=== PATIENT | male | born 1955 | race Caucasian/White ===

== ENCOUNTER → 2017-08-26 | Outpatient (CLI) | payer BC | LOC: RAD 16:28 | DX: R05 Cough (principal); R06.02 Shortness of breath ==

== ENCOUNTER → 2021-01-21 | Outpatient (REF) | LOC: LAB 15:38 | DX: Z00.00 Encounter for general adult medical examination without abnormal findings (principal); Z12.5 Encounter for screening for malignant neoplasm of prostate ==

== ENCOUNTER → 2021-09-12 | Outpatient (CLI) | payer MEDICARE | LOC: RAD 15:21 | DX: M51.36 Other intervertebral disc degeneration, lumbar region (principal) ==

== ENCOUNTER → 2021-12-16 | Outpatient (CLI) | payer MEDICARE ==
[~2021-12-16] VITALS: Ht 177.8 cm; Wt 90.0 kg
[~2021-12-16] MED LIST: ACETAMINOPHEN500 M5 PO; COZAAR100 MG PO; CRESTOR 10MG10 MG PO; MOBIC15 M1 PO; MOTRIN IB200 M2 PO
[2021-12-16 09:10] VITALS: BP 164/106
[2021-12-16 09:30] VITALS: BP 157/101
[2021-12-16 09:45] VITALS: BP 129/86
[2021-12-16 10:00] VITALS: BP 129/80
[2021-12-16 10:15] VITALS: BP 1311/82
== END ==
LOC: AMSURD 08:50
DX: U07.1 COVID-19 (principal)
CPT/HCPCS: M0222; Q0222

== ENCOUNTER → 2022-04-10 | Outpatient (CLI) | payer MEDICARE ==
[2022-04-10 17:11] LABS: BASO # 0.03 K/mm3 (0.02-0.10); EOS # 0.13 K/mm3 (0.04-0.40); EOS % 1.7 % (0.0-4.0); HEMATOCRIT 52.5 % (42.0-52.0); LYMPH# 1.55 K/mm3 (1.50-4.00); MEAN CELL VOLUME 92 fl (78-100); MEAN CORPUSCULAR HEMOGLOBIN 30 pg (27-31); MEAN CORPUSCULAR HGB CONC 32 g/dL (33-37); MEAN PLATELET VOLUME 11.3 fl (7.4-10.4); MONO # 0.61 K/mm3 (0.20-0.80); NEU # 5.43 K/mm3 (1.40-6.50); PLATELET COUNT 138 K/mm3 (130-400); RED BLOOD COUNT 5.74 M/mm3 (4.20-5.60); RED CELL DISTRIBUTION WIDTH 12.6 % (11.5-14.5); WHITE BLOOD COUNT 7.8 K/mm3 (4.8-10.8)
[2022-04-10 17:21] LABS: ALBUMIN 4.5 g/dL (3.4-4.8); POTASSIUM 3.8 mmol/L (3.5-5.1)
[2022-04-10 17:22] LABS: CALCIUM 9.6 mg/dL (8.3-10.5)
[2022-04-10 17:24] LABS: TOTAL PROTEIN 7.6 g/dL (6.2-8.1)
[2022-04-10 17:26] LABS: TOTAL BILIRUBIN 1.2 mg/dL (0.2-1.2)
[2022-04-10 17:31] LABS: MAGNESIUM 2.23 mg/dL (1.60-2.60)
== END ==
LOC: LAB 16:51
PROVIDERS: Internal Medicine
DX: Z12.5 Encounter for screening for malignant neoplasm of prostate (principal); Z00.00 Encounter for general adult medical examination without abnormal findings; I10 Essential (primary) hypertension; E78.2 Mixed hyperlipidemia

== ENCOUNTER → 2022-09-17 | Outpatient (CLI) | payer MEDICARE | LOC: RAD 14:52 | DX: M47.26 Other spondylosis with radiculopathy, lumbar region (principal); M48.061 Spinal stenosis, lumbar region without neurogenic claudication; M51.16 Intervertebral disc disorders with radiculopathy, lumbar region ==

== ENCOUNTER → 2023-08-10 | Outpatient (CLI) | payer MEDICARE ==
[2023-08-10 14:39] LABS: BASO # 0.03 K/mm3 (0.02-0.10); EOS # 0.11 K/mm3 (0.04-0.40); EOS % 1.6 % (0.0-4.0); HEMATOCRIT 56.8 % (42.0-52.0); HEMOGLOBIN 18.3 g/dL (13.5-18.0); LYMPH# 1.35 K/mm3 (1.50-4.00); MEAN CELL VOLUME 93 fl (78-100); MEAN CORPUSCULAR HEMOGLOBIN 30 pg (27-31); MEAN CORPUSCULAR HGB CONC 32 g/dL (33-37); MEAN PLATELET VOLUME 11.6 fl (7.4-10.4); MONO # 0.51 K/mm3 (0.20-0.80); NEU # 4.79 K/mm3 (1.40-6.50); PLATELET COUNT 128 K/mm3 (130-400); RED BLOOD COUNT 6.09 M/mm3 (4.20-5.60); RED CELL DISTRIBUTION WIDTH 12.5 % (11.5-14.5); WHITE BLOOD COUNT 6.8 K/mm3 (4.8-10.8)
[2023-08-10 15:06] LABS: ALBUMIN 4.9 g/dL (3.4-4.8)
[2023-08-10 15:07] LABS: CALCIUM 10.1 mg/dL (8.3-10.5)
[2023-08-10 15:09] LABS: TOTAL PROTEIN 7.9 g/dL (6.2-8.1)
[2023-08-10 15:11] LABS: TOTAL BILIRUBIN 1.3 mg/dL (0.2-1.2)
[2023-08-10 15:16] LABS: MAGNESIUM 2.36 mg/dL (1.60-2.60)
== END ==
LOC: LAB 14:19
PROVIDERS: Internal Medicine
DX: Z12.5 Encounter for screening for malignant neoplasm of prostate (principal); Z12.11 Encounter for screening for malignant neoplasm of colon; I10 Essential (primary) hypertension; E78.2 Mixed hyperlipidemia; K90.9 Intestinal malabsorption, unspecified